=== PATIENT | male | born 1975 | race Hispanic/Latino ===

== ENCOUNTER 2023-10-06 14:27 | Emergency (ER) | payer MEDICARE, MEDICAID ==
[~2023-10-06] VITALS: Ht 185.4 cm; Wt 106.6 kg
[2023-10-06 15:39] LABS: BASOPHILS # (AUTO) 0.01 K/uL (0.00-0.20); BASOPHILS % (AUTO) 0.2 % (0.0-5.0); EOSINOPHILS # (AUTO) 0.03 K/uL (0.00-0.70); EOSINOPHILS % (AUTO) 0.6 % (0.0-8.0); HEMATOCRIT 23.2 % (42-54); IMMATURE GRANULOCYTE ABSOLUTE 0.02 K/uL (0-1); LYMPHOCYTES # (AUTO) 0.5 K/uL (1.0-4.8); LYMPHOCYTES % (AUTO) 10.3 % (21.0-51.0); MEAN CORPUSCULAR HEMOGLOBIN 31.2 pg (27.0-33.0); MEAN CORPUSCULAR VOLUME 100.4 fL (79-99); MONOCYTES # (AUTO) 0.2 K/uL (0.1-1.0); NEUTROPHILS # (AUTO) 4.3 K/uL (1.8-7.7); NEUTROPHILS % (AUTO) 84.5 % (40.0-77.0); PLATELET COUNT (AUTO) 146 K/uL (130-400); RED BLOOD CELL COUNT(AUTO) 2.31 MIL/uL (4.50-6.20); RED CELL DISTRIBUTION WIDTH 17.2 % (11.0-15.5); WHITE BLOOD COUNT (AUTO) 5.1 K/uL (4.8-10.8)
[2023-10-06 15:50] LABS: ALBUMIN 3.2 g/dL (3.5-5.0); BILIRUBIN,TOTAL 0.7 mg/dL (0.2-1.0); MAGNESIUM 2.1 mg/dL (1.80-2.40); POTASSIUM 4.1 mmol/L (3.5-5.1); TOTAL PROTEIN, SERUM 7.5 g/dL (6.0-8.3)
[2023-10-06 15:52] LABS: CREATININE 9.4 mg/dL (0.5-1.3)
[2023-10-06 16:15] LABS: B-TYPE NATRIURETIC PEPTIDE 1310 pg/mL (0-100)
[2023-10-06 16:26] LABS: BAND NEUTROPHILS % (MANUAL) 9 % (0-2); LYMPHOCYTES % (MANUAL) 4 % (22-44); REACTIVE LYMPHOCYTES 10 % (0-0); SEGMENTED NEUTROPHILS % 77 % (40-70); TOTAL CELLS COUNTED 100
[2023-10-06 16:27] LABS: MAN.DIFF COMMENT-IMPRESSION MANUAL DIFFERENTIAL; PLATELET MORPHOLOGY COMMENT LARGE PLTS PRESENT
[2023-10-06] MEDS ORDERED: FAMO20TA8 PO (18:21)
[2023-10-06] MEDS: MAG/ALUM/SIMETH 30 ML UDCUP PO ONE (19:06)
[2023-10-06] MEDS: 0.9% NACL 250ML 250 ML IV ONE (19:06)
[2023-10-06] MEDS: METOCLOPRAMIDE 10 MG/2 ML VIAL IVP ONE (19:06)
[2023-10-06] MEDS: DICYCLOMINE HCL 10 MG/5 ML ML PO ONE (19:06)
[2023-10-06] MEDS: LIDOCAINE HCL 2% VISCOUS 15 ML UDCUP PO ONE (19:06)
[2023-10-06] MEDS: FAMOTIDINE 20MG VIAL IV ONE (19:07)
[2023-10-06 20:03] VITALS: BP 149/74; PULSE 81; RESP 16; O2SAT 99
== END 2023-10-06 20:07 | disposition home or self-care (01) ==
LOC: EDH 14:27
DX: K29.70 Gastritis, unspecified, without bleeding (principal); M19.90 Unspecified osteoarthritis, unspecified site
CPT/HCPCS: 99285; 96374; 71045; 96361; 96375; 83735; 84484; 80053; 83880; 85025; 87040 ×2; 83605; 36415; 93005; J3490; J2765; J7050